=== PATIENT | female | born 1945 | race Two or more races ===

== ENCOUNTER 2024-02-19 16:56 | Emergency (ER) | payer OTHER ==
[~2024-02-19] VITALS: Ht 162.6 cm; Wt 72.6 kg
[2024-02-19] MEDS ORDERED: FAMOTIDINE/PF 20 MG/2 ML VIAL IV ONE (17:45)
[2024-02-19] MEDS ORDERED: ONDANSETRON HCL 2 MG/ML VIAL IV ONE (17:45)
[2024-02-19] MEDS ORDERED: 0.9 % SODIUM CHLORIDE 500 ML IV ONE (18:00)
[2024-02-19 18:13] LABS: HEMATOCRIT 41.5 % (36.0-45.00); HEMOGLOBIN 14.2 g/dL (12.0-15.00); MEAN CELL VOLUME 90.6 fL (80.00-100.00); MEAN CORPUSCULAR HGB CONC 34.2 g/dl (32.0-36.0); PLATELET COUNT 244 K/uL (150-450); RED BLOOD COUNT 4.58 M/uL (4.00-6.00); RED CELL DISTRIBUTION WIDTH 13.3 % (11.5-14.5)
[2024-02-19 18:43] LABS: BILIRUBIN TOTAL 0.56 mg/dL (0.3-1.2); BILIRUBIN,CONJUGATED 0.18 mg/dL (0.0-0.2); BILIRUBIN,UNCONJUGATED 0.38 mg/dL (0.0-0.6); CALCIUM 9.6 mg/dL (8.5-10.1); CREATININE SERUM 0.68 mg/dL (0.55-1.02); GFR 83.25; GLOBULINA 3.1 G/DL (2.4-3.5); POTASSIUM 4.35 mEq/L (3.5-5.1); TOTAL PROTEIN 7.1 gm/dL (6.4-8.2)
[2024-02-19] MEDS ORDERED: KETOROLAC TROMETHAMINE 30 MG VIAL IV ONE (19:15)
[2024-02-19] MEDS ORDERED: CIPRO500 MG PO (22:50)
[2024-02-19] MEDS ORDERED: METRONIDAZOLE500 MG PO (22:50)
[2024-02-19] MEDS ORDERED: PEPCID AC20 MG PO (22:50)
[2024-02-19] MEDS ORDERED: INTESTINEX680 M1 PO (22:50)
[2024-02-19 23:11] LABS: PH,URINE 5.5 (5.0-8.0); URINE APPEARANCE Clear; URINE BILIRRUBIN Negative (NEGATIVE); URINE BLOOD NHT; URINE COLOR Yellow; URINE GLUCOSE Negative (NEGATIVE); URINE LEUKOCYTE Negative; URINE NITRATE Negative; URINE PROTEIN Trace (NEGATIVE); URINE UROBILINOGEN 0.2 E.U./dl
[2024-02-19 23:15] LABS: URINE BACTERIA 29.3 uL (0.0-1933); URINE EPITHELIAL CELLS 4.5 uL (0.0-38.8); URINE RBC 18.7 uL (0.0-20.8); URINE WBC 5.6 uL (0.0-23.2)
[2024-02-19 23:21] LABS: URINE KETONE 40 (NEGATIVE)
== END 2024-02-20 00:05 ==
LOC: ER 16:58
PROVIDERS: General Practice
DX: K52.89 Other specified noninfective gastroenteritis and colitis (principal); R10.32 Left lower quadrant pain; K57.32 Diverticulitis of large intestine without perforation or abscess without bleeding; Z20.822 Contact with and (suspected) exposure to COVID-19; K40.20 Bilateral inguinal hernia, without obstruction or gangrene, not specified as recurrent
CPT/HCPCS: 36415; 74176; 93005; 96365; 96366; 99284; J1885; J2405; J3490; J7042

== ENCOUNTER 2024-05-23 11:30 | Day surgery (SDC) | payer OTHER ==
[2024-05-21 12:12] LABS: URINE APPEARANCE Cloudy; URINE BILIRRUBIN Negative (NEGATIVE); URINE BLOOD Negative; URINE COLOR Yellow; URINE GLUCOSE Negative (NEGATIVE); URINE KETONE 15 (NEGATIVE); URINE LEUKOCYTE Negative; URINE NITRATE Negative; URINE PROTEIN Negative (NEGATIVE)
[2024-05-21 12:15] LABS: HEMATOCRIT 38.8 % (36.0-45.00); HEMOGLOBIN 13.2 g/dL (12.0-15.00); MEAN CELL VOLUME 90.6 fL (80.00-100.00); MEAN CORPUSCULAR HEMOGLOBIN 30.8 pg (27.00-32.0); MEAN CORPUSCULAR HGB CONC 34.1 g/dl (32.0-36.0); PLATELET COUNT 230 K/uL (150-450); RED BLOOD COUNT 4.29 M/uL (4.00-6.00); RED CELL DISTRIBUTION WIDTH 14.3 % (11.5-14.5)
[2024-05-21 12:16] LABS: URINE BACTERIA 40.3 uL (0.0-1933); URINE EPITHELIAL CELLS 10.4 uL (0.0-38.8); URINE WBC 4.9 uL (0.0-23.2)
[2024-05-21 12:29] LABS: INR 1.05; PARTIAL THROMBOPLASTIN TIME 30.2 SECONDS (22.0-34.0); PROTHROMBIN TIME 11.4 SECONDS (9.0-11.5)
[2024-05-21 13:08] LABS: ALBUMIN 3.9 gm/dL (3.4-5.0); BILIRUBIN TOTAL 0.5 mg/dL (0.3-1.2); CREATININE SERUM 0.57 mg/dL (0.55-1.02); GFR 102.05; GLOBULINA 2.6 G/DL (2.4-3.5); POTASSIUM 4.57 mEq/L (3.5-5.1); TOTAL PROTEIN 6.5 gm/dL (6.4-8.2); URINE CAST 0.29 uL (0.0-1.40)
[~2024-05-23 11:30] MED LIST: CIPRO500 MG PO; INTESTINEX680 M1 PO; METRONIDAZOLE500 MG PO; PEPCID AC20 MG PO
[2024-05-23] MEDS ORDERED: TYLENOL ARTHRI650 MG PO (11:55)
[2024-05-23] MEDS ORDERED: KETO10TA2 PO (11:55)
[2024-05-23] MEDS ORDERED: TRAMADOL HCL50 MG PO (11:55)
[2024-05-23] MEDS ORDERED: MIRALAX17 GM PO (11:55)
[2024-05-23] MEDS ORDERED: CEFAZOLIN SODIUM 1,000 MG VIAL ONE (14:29)
[2024-05-23] MEDS ORDERED: BUPIVACAINE HCL/MPF 0.5% 30ML VIAL ONE (14:55)
[2024-05-23] MEDS ORDERED: MORPHINE SULFATE 4 MG/ML VIAL IV ONE ×2 (16:45→17:35)
== END 2024-05-23 20:15 | disposition home or self-care (01) ==
LOC: CIR.AMB 11:30
PROVIDERS: ATTEND Surgery
DX: K40.30 Unilateral inguinal hernia, with obstruction, without gangrene, not specified as recurrent (principal)
CPT/HCPCS: 49507; C1781

== ENCOUNTER 2024-12-26 09:00 | Day surgery (SDC) | payer OTHER ==
[2024-12-19 09:11] LABS: BASO % 1.5 % (0.1-1.2); EOS # 0.11 (0.04-0.54); EOS % 2.3 % (0.7-7.0); LYMPH # 1.27 (1.18-3.74); LYMPH % 26.8 % (19.3-53.1); MEAN PLATELET VOLUME 10.10 fl (9.4-12.4); MONO # 0.39 (0.24-0.82); MONO % 8.2 % (4.7-12.5); NEUT # 2.89 (1.56-6.13); NEUT % 61.0 % (34.0-71.1); RED CELL DISTRIBUTION WIDTH 13.4 % (11.6-14.4)
[2024-12-19 09:19] VITALS: BP 160/90
[2024-12-19 09:33] LABS: INR 1.04
[2024-12-19 09:41] LABS: ALT/SGPT 20.0 U/L (12-78); AST/SGOT 18.0 U/L (15-37); BILIRUBIN TOTAL 0.57 mg/dL (0.3-1.2); BUN CREA RATIO 25.0 (7.0-25.0); CREATININE SERUM 0.55 mg/dL (0.55-1.02); GFR 106.08; GLOBULINA 2.4 G/DL (2.4-3.5); GLUCOSE FASTING 88.0 mg/dL (65-100); OSMOLALITY SERUM 283.0 MOSM/KG (275-295)
[2024-12-19 10:38] LABS: URINE APPEARANCE Clear; URINE BILIRRUBIN Negative (NEGATIVE); URINE BLOOD Negative; URINE COLOR Yellow; URINE GLUCOSE Negative (NEGATIVE); URINE KETONE Negative (NEGATIVE); URINE LEUKOCYTE Small; URINE NITRATE Negative; URINE PROTEIN Negative (NEGATIVE); URINE UROBILINOGEN 1.0 E.U./dl
[2024-12-19 10:43] LABS: URINE BACTERIA 29.9 uL (0.0-1933); URINE EPITHELIAL CELLS 9.3 uL (0.0-38.8); URINE RBC 20.0 uL (0.0-20.8); URINE WBC 27.1 uL (0.0-23.2)
[2024-12-19 11:21] LABS: URINE CAST 0.00 uL (0.0-1.40)
[~2024-12-26] VITALS: Ht 157.5 cm; Wt 72.6 kg
[~2024-12-26 09:00] MED LIST changes: +KETO10TA2 PO; +MIRALAX17 GM PO; +TRAMADOL HCL50 MG PO; +TYLENOL ARTHRI650 MG PO
[2024-12-26] MEDS ORDERED: MIRALAX17 GM PO (10:18)
[2024-12-26] MEDS ORDERED: KETO10TA2 PO (10:18)
[2024-12-26] MEDS ORDERED: TRAMADOL HCL25 MG PO (10:18)
[2024-12-26] MEDS ORDERED: TYLENOL ARTHRI650 MG PO (10:18)
[2024-12-26] MEDS ORDERED: CEFAZOLIN SODIUM 1,000 MG VIAL IV ONE (10:30)
[2024-12-26] MEDS ORDERED: BUPIVACAINE HCL 30 ML VIAL IJ ONE (10:30)
[2024-12-26] MEDS ORDERED: KETOROLAC TROMETHAMINE 30 MG VIAL IV ONE (11:45)
== END 2024-12-26 16:00 | disposition home or self-care (01) ==
LOC: CIR.AMB 09:00
PROVIDERS: ATTEND Surgery
DX: K40.30 Unilateral inguinal hernia, with obstruction, without gangrene, not specified as recurrent (principal)
CPT/HCPCS: 49507; C1781